=== PATIENT | male | born 1995 | race Caucasian/White ===

== ENCOUNTER 2020-01-01 15:24 | Inpatient (IN) | payer MEDICAID, OTHER ==
[~2020-01-01] VITALS: Ht 175.3 cm; Wt 68.4 kg
[~2020-01-01 15:24] MED LIST: ALBU18HF2 IH; KEP500T PO; etomidate 2mg/ml inj. ONE; rocuronium 10mg/ml inj IV ONE; sod chloride 0.9% 10ml flush syringe IV ONE
[2020-01-01] MEDS ORDERED: LORazepam 2 mg/ml vial IV ONE (15:40)
[2020-01-01] MEDS ORDERED: LORazepam 2 mg/ml vial ONE ×2 (15:55→16:02)
--- NOTE | 2020-01-01 15:57 | NUR ---
1mg ativan given IV. Patient continues to fight uncontrollably with several staff members attempting to restrain him. Dr. Teixeira notified. 2mg IV ativan ordered verbally which is over-ridden and given. Patient continues to fight. Will notify Dr. Teixeira.
[2020-01-01 15:58] LABS: BASOPHILS # (AUTO) 0.1 X10'3 (0-0.2); BASOPHILS % (AUTO) 0.4 % (0-1); EOSINOPHILS % (AUTO) 0 % (0-6); HEMATOCRIT 41.9 % (42.0-52.0); LYMPHOCYTES % (AUTO) 3.9 % (21-51); MEAN CORPUSCULAR HEMOGLOBIN 30.3 PG (27.0-31.0); MEAN CORPUSCULAR HGB CONC 33.3 g/dL (33.0-36.5); MEAN CORPUSCULAR VOLUME 90.8 FL (78-98); MEAN PLATELET VOLUME 8.8 FL (7.4-10.4); MONOCYTES # (AUTO) 1.9 X10'3 (0-0.9); MONOCYTES % (AUTO) 7.2 % (2-12); NEUTROPHILS # (AUTO) 23.5 X10'3 (1.8-7.7); NEUTROPHILS % (AUTO) 88.5 % (42-75); PLATELET COUNT 229 X10'3 (140-440); RED BLOOD COUNT 4.62 X10'6 (4.70-6.10); RED CELL DISTRIBUTION WIDTH 13.8 % (11.5-14.5)
--- NOTE | 2020-01-01 16:00 | NUR ---
PAGED FOR ULTRA SOUND
--- NOTE | 2020-01-01 16:03 | NUR ---
FAMILY PHONE NUMBER - [place] [phone]
[2020-01-01 16:06] LABS: WHITE BLOOD COUNT 26.6 X10'3 (4.5-11.0)
[2020-01-01] MEDS ORDERED: normal saline 1000ML IV soln IV ONE (16:10)
[2020-01-01] MEDS ORDERED: diphenhydrAMINE 50 mg/ml inj ONE (16:22)
[2020-01-01] MEDS ORDERED: haloperidol lactate 5mg/ml inj ONE (16:22)
[2020-01-01 16:28] LABS: PLATELET ESTIMATE NORMAL; TOTAL CELLS COUNTED 100
--- NOTE | 2020-01-01 16:38 | NUR ---
swapna and jalen over-ridden by verbal from Dr. Teixeira for continued thrashing and combative behavior. Request for possible intubation. Dr. Teixeira states if meds havent worked in 10 minutes we will intubate the patient.
--- NOTE | 2020-01-01 16:52 | NUR ---
PT MOTHER IN LAW PHONE NUMBER - [place] AGUILAR [phone]
[2020-01-01] MEDS ORDERED: propofol 1000mg/100ml bottle 100 ML IV PRN (17:07)
[2020-01-01] MEDS ORDERED: midazolam 100mg in NS 100ml 100 ML IV PRN ×2 (17:10→19:31)
[2020-01-01] MEDS: propofol 1000mg/100ml bottle 100 ML IV PRN ×2 (17:15→19:31)
[2020-01-01 17:16] LABS: ABG HCO3 19.8 mmol/L (22.0-26.0); ABG OXYGEN SATURATION 99.1 % (95-98); ABG PCO2 (T) 49.2 mmHg (35.0-45.0); ABG PH (T) 7.223 (7.350-7.450); ABG PO2 (T) 237.2 mmHg (83-108); FCOHb 0.4 % (0.5-1.5); FMetHb 0.4 % (0.3-1.12); FO2Hb 98.3 % (94-100); PEEP 5 cm H2O; RESPIRATORY RATE 14 b/min; TIDAL VOLUME 450 mL; TOTAL HEMOGLOBIN 14.7 G/dl (14.0-17.9)
[2020-01-01 17:37] LABS: ALANINE AMINOTRANSFERASE 24 U/L (12-78); ALBUMIN 4.2 G/DL (3.4-5.0); ALBUMIN/GLOBULIN RATIO 1.3 (1.1-1.5); ALKALINE PHOSPHATASE 87 IU/L (46-116); ANION GAP 12 (8-16); ASPARTATE AMINO TRANSFERASE 36 U/L (10-37); BILIRUBIN,TOTAL 0.3 MG/DL (0.1-1.0); BLOOD UREA NITROGEN 14 MG/DL (7-18); BUN/CREATININE RATIO 10.5 (5.4-32.0); CALCIUM 8.9 MG/DL (8.5-10.1); CHLORIDE 107 MMOL/L (99-107); CREATININE 1.33 MG/DL (0.60-1.10); GLUCOSE 110 MG/DL (70-104); POTASSIUM 3.6 MMOL/L (3.5-5.1); SODIUM 144 MMOL/L (135-145); TOTAL CARBON DIOXIDE 24.8 MMOL/L (24-32); TOTAL PROTEIN 7.5 G/DL (6.4-8.2); eGFR 67 ML/MIN
[2020-01-01] MEDS ORDERED: dexamethasone sod phosphate 10mg/ml inj IV STA (17:39)
[2020-01-01] MEDS ORDERED: CefTRIAXone 2gm/D5W 50ml 50 ML IV ONE (17:40)
[2020-01-01 17:48] LABS: CKMB RELATIVE INDEX 0.7 RATIO (0-2.5); CREATINE KINASE 614 U/L (39-308); ETHANOL < 0.010 GM/DL (0.0-0.010)
[2020-01-01] MEDS ORDERED: acetaminophen 650mg rectal suppository RC ONE (18:10)
[2020-01-01 18:19] LABS: CLARITY,URINE SLIGHTLY CLOUDY (Clear); COLOR,URINE STRAW (Yellow); GLUCOSE, URINE NEGATIVE (Neg); KETONES,URINE TRACE mg/dl (Neg); LEUKOCYTE ESTERASE ,URINE NEGATIVE (Neg); NITRITES, URINE NEGATIVE (Neg); OCCULT BLOOD,URINE MODERATE (Neg); PH,URINE 5.5 (4.8-8.0); PROTEIN,URINE NEGATIVE (Neg); UROBILINOGEN,URINE 0.2 E.U/dL (0.2-1.0)
[2020-01-01 18:20] LABS: UA COLLECTION TYPE CLN CATCH MIDSTREAM
[2020-01-01 18:26] LABS: GLUCOSE,CSF 93 MG/DL (40-75); TOTAL PROTEIN,CSF 50 MG/DL (15-45)
[2020-01-01 18:31] LABS: URINE AMPHETAMINE SCREEN NEGATIVE (Neg); URINE BARBITUATE SCREEN NEGATIVE (Neg); URINE BENZODIAZEPINES SCREEN POSITIVE (Neg); URINE CANNABINOID SCREEN POSITIVE (Neg); URINE COCAINE SCREEN NEGATIVE (Neg); URINE METHADONE SCREEN NEGATIVE (Neg); URINE OPIATE SCREEN NEGATIVE (Neg); URINE PHENCYCLIDINE SCREEN NEGATIVE (Neg)
[2020-01-01 18:35] LABS: APPEARANCE,CSF CLEAR; CSF SUPERNATANT COLOR COLORLESS; CSF VOLUME 8 ML; TUBE# COUNTED 1
[2020-01-01 18:38] LABS: APPEARANCE,CSF CLEAR; CSF RBC 1 /CU MM (0); CSF WBC CT 3 /CU MM (0-5)
[2020-01-01 18:39] LABS: CSF RBC 2 /CU MM (0); CSF SUPERNATANT COLOR COLORLESS; CSF VOLUME 8 ML; CSF WBC CT 2 /CU MM (0-5); TUBE# COUNTED 4
[2020-01-01 18:52] LABS: BACTERIA,URINE NONE SEEN /HPF (Neg); RBC,URINE 0-2 /HPF (0-2); SQUAMOUS EPITHELIAL CELL,UR FEW /LPF (FEW); WBC,URINE NONE SEEN /HPF (0-4)
[2020-01-01 18:53] LABS: FINE GRANULAR CAST 0-3 /LPF (NEGATIVE); URIC ACID CRYSTALS 4+ /HPF (NEGATIVE)
[2020-01-01] MEDS ORDERED: FENTANYL-0.9 % NACL/PF 100 ML IV PRN (19:31)
[2020-01-01] MEDS ORDERED: acetaminophen 650mg rectal suppository RC PRN (19:35)
[2020-01-01] MEDS ORDERED: acetaminophen 325mg tablet PO PRN (19:35)
[2020-01-01] MEDS ORDERED: ondansetron/PF 4mg/2ml inj IV PRN (19:35)
[2020-01-01] MEDS ORDERED: ipratropium/albuterol 3ml nebule NEB PRN (19:35)
[2020-01-01] MEDS ORDERED: potassium Cl 20mEq/100mL bag 100 ML IV PRN (19:35)
[2020-01-01] MEDS ORDERED: thiamine inj. 100 MG in normal saline 100ml IV soln 100 ML IV ONE (19:55)
[2020-01-01 20:10] LABS: MAGNESIUM 2.2 MG/DL (1.5-2.4); PHOSPHORUS 3.7 MG/DL (2.3-4.5)
[2020-01-01] MEDS: normal saline 1000ml 1,000 ML IV SCH (20:40)
--- NOTE | 2020-01-01 20:40 | NUR ---
Patient arrived from ER via gurney into room ICU 2042 with RT and [employer]IN[employer] DISPATCHER and tech. Transferred to ICU bed, placed on ventilator by RT. Attached to equipment monitor phototypesetting. I have received report from Ivone GUERRERO and had the opportunity to ask questions and assume patient care. Patient restless, attempting to sit up in bed, titrating sedation to reduce agitation and encourage synchrony with ventilator.
[2020-01-01 20:45] VITALS: BP 132/76
[2020-01-01 21:00] VITALS: BP 125/82
[2020-01-01 21:12] LABS: HEMOGLOBIN A1C 5.2 % (4.5-6.2)
[2020-01-01 21:30] VITALS: BP 118/69
[2020-01-01 22:00] VITALS: BP 111/61
[2020-01-01] MEDS: levetiracetam inj 500 MG in normal saline 100ml IV soln 95 ML IV SCH (22:13)
[2020-01-01] MEDS: docusate sodium 100mg/10ml UD cup PO SCH (22:15)
[2020-01-01 23:00] VITALS: BP 111/52
[2020-01-02] VITALS (23 sets, daily range): BP systolic 102–147; BP diastolic 45–94
[2020-01-02] MEDS: heparin, porcine 5000 units/ml vial SQ SCH ×3 (01:14→21:06)
[2020-01-02 03:37] LABS: BASOPHILS % (AUTO) 0.4 % (0-1); EOSINOPHILS % (AUTO) 0 % (0-6); HEMATOCRIT 37.1 % (42.0-52.0); HEMOGLOBIN 12.4 g/dl (14.0-17.9); LYMPHOCYTES # (AUTO) 0.8 X10'3 (1.1-4.8); LYMPHOCYTES % (AUTO) 6.5 % (21-51); MEAN CORPUSCULAR HEMOGLOBIN 30.2 PG (27.0-31.0); MEAN CORPUSCULAR HGB CONC 33.4 g/dL (33.0-36.5); MEAN CORPUSCULAR VOLUME 90.4 FL (78-98); MEAN PLATELET VOLUME 9.1 FL (7.4-10.4); MONOCYTES # (AUTO) 0.5 X10'3 (0-0.9); MONOCYTES % (AUTO) 3.7 % (2-12); NEUTROPHILS # (AUTO) 11.3 X10'3 (1.8-7.7); NEUTROPHILS % (AUTO) 89.4 % (42-75); PLATELET COUNT 177 X10'3 (140-440); RED CELL DISTRIBUTION WIDTH 13.7 % (11.5-14.5); WHITE BLOOD COUNT 12.6 X10'3 (4.5-11.0)
[2020-01-02 03:44] LABS: PARTIAL THROMBOPLASTIN TIME 28 SECONDS (22-32)
[2020-01-02 03:46] LABS: ABG BASE EXCESS -5.3 mmol/L (-2.0-3.0); ABG HCO3 20.1 mmol/L (22.0-26.0); ABG PCO2 (T) 38.8 mmHg (35.0-45.0); ABG PH (T) 7.333 (7.350-7.450); ABG PO2 (T) 100.5 mmHg (83-108); ALLEN'S TEST POSITIVE; FCOHb 0.3 % (0.5-1.5); FMetHb 0.3 % (0.3-1.12); FO2Hb 96.4 % (94-100); PATIENT TEMPERATURE 37.1; PEEP 5 cm H2O; RESPIRATORY RATE 16 b/min; TIDAL VOLUME 450 mL; TOTAL HEMOGLOBIN 13.1 G/dl (14.0-17.9)
[2020-01-02 03:48] LABS: ALANINE AMINOTRANSFERASE 24 U/L (12-78); ALBUMIN 3.4 G/DL (3.4-5.0); ALBUMIN/GLOBULIN RATIO 1.1 (1.1-1.5); ALKALINE PHOSPHATASE 68 IU/L (46-116); AMYLASE 37 U/L (25-115); ANION GAP 10 (8-16); ASPARTATE AMINO TRANSFERASE 57 U/L (10-37); BILIRUBIN,TOTAL 0.3 MG/DL (0.1-1.0); BLOOD UREA NITROGEN 10 MG/DL (7-18); BUN/CREATININE RATIO 9.8 (5.4-32.0); CALCIUM 8.3 MG/DL (8.5-10.1); CHLORIDE 108 MMOL/L (99-107); CREATININE 1.02 MG/DL (0.60-1.10); GLUCOSE 120 MG/DL (70-104); LIPASE 58 U/L (73-393); MAGNESIUM 2.3 MG/DL (1.5-2.4); PHOSPHORUS 4.2 MG/DL (2.3-4.5); POTASSIUM 3.9 MMOL/L (3.5-5.1); SODIUM 142 MMOL/L (135-145); TOTAL CARBON DIOXIDE 24.1 MMOL/L (24-32); TOTAL PROTEIN 6.4 G/DL (6.4-8.2); eGFR > 90 ML/MIN
--- NOTE | 2020-01-02 06:20 | NUR ---
Patient in room ICU 2042. I have received report from Irene GUERRERO and had the opportunity to ask questions and assume patient care.
--- NOTE | 2020-01-02 06:22 | NUR ---
Problems reprioritized. Patient report given, questions answered & plan of care reviewed with Estela GUERRERO.
[2020-01-02] MEDS: pantoprazole 40 MG vial IV SCH (07:13)
[2020-01-02] MEDS: docusate sodium 100mg/10ml UD cup PO SCH ×2 (07:13→21:05)
[2020-01-02] MEDS: thiamine 100mg tablet PO SCH (07:14)
[2020-01-02] MEDS: multivitamins, therapeutics tablet PO SCH (07:14)
[2020-01-02] MEDS: levetiracetam inj 500 MG in normal saline 100ml IV soln 95 ML IV SCH ×2 (07:15→21:07)
[2020-01-02] MEDS: folic acid 1mg tablet PO SCH (07:15)
[2020-01-02] MEDS: CefTRIAXone 2gm/D5W 50ml 50 ML IV SCH (07:57)
[2020-01-02] MEDS: normal saline 1000ml 1,000 ML IV SCH (07:57)
[2020-01-02] MEDS ORDERED: FENTANYL-0.9 % NACL/PF 100 ML IV PRN (09:29)
[2020-01-02] MEDS ORDERED: midazolam 100mg in NS 100ml 100 ML IV PRN (09:30)
--- NOTE | 2020-01-02 09:30 | NUR ---
Changed comfit to anchorfast with RT, advanced ETT to 23, as radiology had called and said it needed to be advanced 3cm. Follow up CXR done.
--- NOTE | 2020-01-02 11:03 | NUR ---
EEG being performed.
--- NOTE | 2020-01-02 11:06 | NUR ---
Dr. Balderas made aware in rounds that pt has decreased urine output. 5ml noted out of azar last hour. Pt currently on NS @ 75ml/hr. Cr 1.02. No other orders placed by .
--- NOTE | 2020-01-02 11:27 | NUR ---
Initial: Pt intubated for airway protection admit s/p seizure x7 at home and [address] to ER per MD. Hx seizures and reported possible 2 beers/day; receiving thiamin, folic, MVI in case etoh-induced per MD. Pt combative in ER requiring sedation and occasional bolus of propofol on vent per MD. No propofol active at this time per EMR. MAP 129 this AM at time of RD visit. No BM yet new admit receiving routine colace. OG in place; TF recs below in case prolonged intubation. Will continue to monitor. Rec: 1. IF TF; Vital at 70ml/hr goal 2. IF TF; additional water flush 200ml Q4 3. IF TF; PALB Q /; daily wts 4. routine bowel care 5. upon extubation; advance diet as medically indicated to regular; consider [employer] BSS if remains ALOC Addendum: 01/02/20 at [address] Amended: Links added.
[2020-01-02] MEDS ORDERED: NO HOME MEDS (11:41)
[2020-01-02] MEDS: dexmedetomidin/NS 400mcg/100ml 100 ML IV SCH ×2 (11:42→17:57)
--- NOTE | 2020-01-02 14:05 | NUR ---
Patient bladder scan revealed 750+mL in bladder. Repositioned coude to no avail, flushed x3 and finally it opened back up and drained 700+mL of urine.
--- NOTE | 2020-01-02 18:30 | NUR ---
Patient in room ICU 2042. I have received report from Estela GUERRERO and had the opportunity to ask questions and assume patient care. Addendum: 01/02/20 at 1955 by Irene Turner RN Amended: Links added.
[2020-01-02] MEDS: mineral oil/petrolatum ophthal oint EACHEYE SCH (21:06)
--- NOTE | 2020-01-02 23:13 | NUR ---
Urine output noted to be decreased, abdomen soft but urine drainage not improved with repositioning of azar. Flushed catheter x2, catheter put out 250mL of urine.
[2020-01-03] VITALS (14 sets, daily range): BP systolic 116–137; BP diastolic 73–93
[2020-01-03] MEDS: normal saline 1000ml 1,000 ML IV SCH (00:04)
[2020-01-03 02:39] LABS: BASOPHILS % (AUTO) 0.3 % (0-1); EOSINOPHILS % (AUTO) 0.2 % (0-6); HEMATOCRIT 37.3 % (42.0-52.0); HEMOGLOBIN 12.6 g/dl (14.0-17.9); LYMPHOCYTES # (AUTO) 2.6 X10'3 (1.1-4.8); LYMPHOCYTES % (AUTO) 22.8 % (21-51); MEAN CORPUSCULAR HEMOGLOBIN 30.7 PG (27.0-31.0); MEAN CORPUSCULAR HGB CONC 33.8 g/dL (33.0-36.5); MEAN CORPUSCULAR VOLUME 90.6 FL (78-98); MEAN PLATELET VOLUME 9.1 FL (7.4-10.4); MONOCYTES # (AUTO) 0.8 X10'3 (0-0.9); MONOCYTES % (AUTO) 6.7 % (2-12); NEUTROPHILS # (AUTO) 8.1 X10'3 (1.8-7.7); PLATELET COUNT 157 X10'3 (140-440); RED BLOOD COUNT 4.11 X10'6 (4.70-6.10); WHITE BLOOD COUNT 11.6 X10'3 (4.5-11.0)
[2020-01-03 02:54] LABS: ALANINE AMINOTRANSFERASE 33 U/L (12-78); ALBUMIN 3.2 G/DL (3.4-5.0); ALBUMIN/GLOBULIN RATIO 1.1 (1.1-1.5); ALKALINE PHOSPHATASE 56 IU/L (46-116); AMYLASE 155 U/L (25-115); ANION GAP 6 (8-16); ASPARTATE AMINO TRANSFERASE 80 U/L (10-37); BILIRUBIN,TOTAL 0.3 MG/DL (0.1-1.0); BLOOD UREA NITROGEN 12 MG/DL (7-18); BUN/CREATININE RATIO 13.8 (5.4-32.0); CALCIUM 8.4 MG/DL (8.5-10.1); CHLORIDE 111 MMOL/L (99-107); CREATININE 0.87 MG/DL (0.60-1.10); GLUCOSE 96 MG/DL (70-104); MAGNESIUM 1.8 MG/DL (1.5-2.4); POTASSIUM 3.5 MMOL/L (3.5-5.1); SODIUM 143 MMOL/L (135-145); TOTAL CARBON DIOXIDE 25.9 MMOL/L (24-32); eGFR > 90 ML/MIN
[2020-01-03] MEDS: mineral oil/petrolatum ophthal oint EACHEYE SCH ×2 (02:54→07:59)
[2020-01-03 02:55] LABS: LIPASE 1802 U/L (73-393)
[2020-01-03 03:11] LABS: ABG BASE EXCESS -1.2 mmol/L (-2.0-3.0); ABG HCO3 22.2 mmol/L (22.0-26.0); ABG OXYGEN SATURATION 98.1 % (95-98); ABG PCO2 (T) 32.8 mmHg (35.0-45.0); ABG PH (T) 7.447 (7.350-7.450); ABG PO2 (T) 111.9 mmHg (83-108); ALLEN'S TEST POSITIVE; FCOHb 0.3 % (0.5-1.5); FMetHb 0.1 % (0.3-1.12); FO2Hb 97.7 % (94-100); PATIENT TEMPERATURE 36.7; PEEP 5 cm H2O; RESPIRATORY RATE 18 b/min; TIDAL VOLUME 450 mL; TOTAL HEMOGLOBIN 13.1 G/dl (14.0-17.9)
[2020-01-03] MEDS: dexmedetomidin/NS 400mcg/100ml 100 ML IV SCH (05:24)
--- NOTE | 2020-01-03 06:15 | NUR ---
Patient awakens quickly, attempts to cough out tube, struggles against restraints. Titrating sedation for patient agitation and synchrony with the vent. Problems reprioritized. Patient report given, questions answered & plan of care reviewed with Nimisha GUERRERO.
--- NOTE | 2020-01-03 06:30 | NUR ---
Patient in room ICU 2042. I have received report from Irene GUERRERO and had the opportunity to ask questions and assume patient care.
[2020-01-03] MEDS: levetiracetam inj 500 MG in normal saline 100ml IV soln 95 ML IV SCH (07:59)
[2020-01-03] MEDS: pantoprazole 40 MG vial IV SCH (08:20)
[2020-01-03] MEDS: docusate sodium 100mg/10ml UD cup PO SCH (08:21)
[2020-01-03] MEDS: heparin, porcine 5000 units/ml vial SQ SCH (08:23)
[2020-01-03] MEDS: thiamine 100mg tablet PO SCH (08:24)
[2020-01-03] MEDS: folic acid 1mg tablet PO SCH (08:24)
[2020-01-03] MEDS: multivitamins, therapeutics tablet PO SCH (08:24)
[2020-01-03] MEDS: CefTRIAXone 2gm/D5W 50ml 50 ML IV SCH (08:29)
[2020-01-03] MEDS ORDERED: ipratropium/albuterol 3ml nebule NEB PRN (11:00)
[2020-01-03] MEDS ORDERED: racepinephrine 11.25mg/0.5ml nebule NEB PRN (11:00)
[2020-01-03] MEDS ORDERED: dexmedetomidine inj. 400 MCG in dextrose 5%-water 100 ML IV SCH (11:04)
--- NOTE | 2020-01-03 14:00 | NUR ---
Patient educated on the importance of being observed after being extubated and being on sedation. Discussed with Pat, girlfriend the importance of patient staying as well. Patient continuing to try to get out of bed and stating that he wants to leave. Discussed with Dr. Balderas who also talked with patient about the importance of medical care post extubation and sedation. Dr. Balderas states that he will provide the patient with prescriptions for anti-seizure meds and also discussed that he needs to see a neurologist as soon as possible. Patient's girlfriend, Pat, called to notify staff that she was here and would be taking him home. Patient signed AMA and left at this time.
[2020-01-03] MEDS ORDERED: ipratropium/albuterol 3ml nebule NEB SCH (15:00)
[2020-01-03] MEDS ORDERED: lactulose 20gm/30ml cup PO PRN (19:35)
[2020-01-03] MEDS ORDERED: lactobacillus rhamnosus 10,000 MMU CELLS/CAPSULE PO SCH (20:00)
== END 2020-01-03 13:40 | disposition left against medical advice (07) | DRG 208 ==
LOC: ER 15:24 → ED HOLD 19:31 → UNDOADMIN 19:49 → ICU 2S 20:00 → ED HOLD 20:00
PROVIDERS: ADMIT Internal Medicine Critical Care Medicine; ATTEND Internal Medicine Critical Care Medicine
PROC: 4A00X4Z Measurement of Central Nervous Electrical Activity, External Approach (ICD-10-PCS; principal; 2020-01-01)
PROC: 5A1945Z Respiratory Ventilation, 24-96 Consecutive Hours (ICD-10-PCS; 2020-01-01)
PROC: 0BH17EZ Insertion of Endotracheal Airway into Trachea, Via Natural or Artificial Opening (ICD-10-PCS; 2020-01-01)
DX: J96.00 Acute respiratory failure, unspecified whether with hypoxia or hypercapnia (principal); G40.909 Epilepsy, unspecified, not intractable, without status epilepticus; D72.829 Elevated white blood cell count, unspecified; F12.90 Cannabis use, unspecified, uncomplicated; N43.3 Hydrocele, unspecified; S05.10XA Contusion of eyeball and orbital tissues, unspecified eye, initial encounter; X58.XXXA Exposure to other specified factors, initial encounter; Y93.89 Activity, other specified; Y92.89 Other specified places as the place of occurrence of the external cause; Y99.8 Other external cause status; Z53.29 Procedure and treatment not carried out because of patient's decision for other reasons
CPT/HCPCS: 36415; 36600; 70450; 71045; 76870; 80053; 80305; 80320; 81001; 82150; 82550; 82553; 82803; 82945; 82948; 83036; 83605; 83690; 83735; 84100; 84145; 84157; 85018; 85025; 85610; 85730; 87015; 87040; 87070; 87081; 89051; 94002; 94003; 94760; 95816; 99291; C9113; G0378; J0696; J1100; J1200; J1630; J1644; J1953; J2060; J2704; J3010; J3411; J7030; J7060

== ENCOUNTER 2020-01-14 10:29 | Emergency (ER) | payer SELFPAY ==
[~2020-01-14] VITALS: Ht 165.1 cm; Wt 60.0 kg
[~2020-01-14 10:29] MED LIST changes: -ALBU18HF2 IH; -KEP500T PO; +NO HOME MEDS; -etomidate 2mg/ml inj. ONE; -rocuronium 10mg/ml inj IV ONE; -sod chloride 0.9% 10ml flush syringe IV ONE
[2020-01-14 10:31] VITALS: BP 145/109
[2020-01-15] MEDS ORDERED: ONDA4TAB12 PO (07:49)
== END 2020-01-14 11:23 | disposition left against medical advice (07) ==
LOC: ER 10:29
DX: R10.9 Unspecified abdominal pain (principal); R11.10 Vomiting, unspecified; Z53.21 Procedure and treatment not carried out due to patient leaving prior to being seen by health care provider

== ENCOUNTER 2020-01-15 06:07 | Emergency (ER) | payer SELFPAY ==
[~2020-01-15] VITALS: Ht 170.2 cm; Wt 140.0 kg
[2020-01-15] MEDS ORDERED: normal saline 1000ML IV soln IVB ONE ×2 (06:25)
[2020-01-15] MEDS ORDERED: diphenhydrAMINE 50 mg/ml inj IV ONE (06:25)
[2020-01-15] MEDS ORDERED: metoclopramide 5 mg/ml inj IV ONE (06:25)
[2020-01-15 07:02] LABS: BASOPHILS # (AUTO) 0.1 X10'3 (0-0.2); BASOPHILS % (AUTO) 0.4 % (0-1); EOSINOPHILS % (AUTO) 0.3 % (0-6); HEMATOCRIT 41.6 % (42.0-52.0); LYMPHOCYTES # (AUTO) 1.7 X10'3 (1.1-4.8); LYMPHOCYTES % (AUTO) 10.6 % (21-51); MEAN CORPUSCULAR HEMOGLOBIN 30.2 PG (27.0-31.0); MEAN CORPUSCULAR HGB CONC 33.7 g/dL (33.0-36.5); MEAN CORPUSCULAR VOLUME 89.6 FL (78-98); MEAN PLATELET VOLUME 8.6 FL (7.4-10.4); MONOCYTES # (AUTO) 0.9 X10'3 (0-0.9); MONOCYTES % (AUTO) 5.9 % (2-12); NEUTROPHILS # (AUTO) 12.9 X10'3 (1.8-7.7); NEUTROPHILS % (AUTO) 82.8 % (42-75); PLATELET COUNT 305 X10'3 (140-440); RED BLOOD COUNT 4.64 X10'6 (4.70-6.10); RED CELL DISTRIBUTION WIDTH 13.8 % (11.5-14.5); WHITE BLOOD COUNT 15.6 X10'3 (4.5-11.0)
[2020-01-15 07:23] LABS: CLARITY,URINE CLOUDY (Clear); COLOR,URINE YELLOW (Yellow); GLUCOSE, URINE NEGATIVE (Neg); KETONES,URINE NEGATIVE (Neg); LEUKOCYTE ESTERASE ,URINE NEGATIVE (Neg); NITRITES, URINE NEGATIVE (Neg); OCCULT BLOOD,URINE NEGATIVE (Neg); PH,URINE 8.5 (4.8-8.0); PROTEIN,URINE 30 mg/dl (Neg); UROBILINOGEN,URINE 0.2 E.U/dL (0.2-1.0)
[2020-01-15 07:25] LABS: ALANINE AMINOTRANSFERASE 52 U/L (12-78); ALBUMIN 4.2 G/DL (3.4-5.0); ALBUMIN/GLOBULIN RATIO 1.3 (1.1-1.5); ALKALINE PHOSPHATASE 95 IU/L (46-116); ANION GAP 9 (8-16); ASPARTATE AMINO TRANSFERASE 26 U/L (10-37); BILIRUBIN,TOTAL 0.3 MG/DL (0.1-1.0); BLOOD UREA NITROGEN 14 MG/DL (7-18); BUN/CREATININE RATIO 13.6 (5.4-32.0); CALCIUM 9.6 MG/DL (8.5-10.1); CHLORIDE 103 MMOL/L (99-107); CREATININE 1.03 MG/DL (0.60-1.10); GLUCOSE 111 MG/DL (70-104); LIPASE 295 U/L (73-393); POTASSIUM 3.1 MMOL/L (3.5-5.1); SODIUM 142 MMOL/L (135-145); TOTAL CARBON DIOXIDE 29.8 MMOL/L (24-32); TOTAL PROTEIN 7.5 G/DL (6.4-8.2); eGFR 89 ML/MIN
[2020-01-15 07:33] LABS: UA COLLECTION TYPE VOIDED
[2020-01-15 07:36] LABS: BACTERIA,URINE NONE SEEN /HPF (Neg); MUCUS STRANDS MANY /LPF (Neg); RBC,URINE NONE SEEN /HPF (0-2); SQUAMOUS EPITHELIAL CELL,UR FEW /LPF (FEW); WBC,URINE 0-4 /HPF (0-4)
[2020-01-15 07:37] LABS: AMORPHOUS PHOSPHATES 4+
[2020-01-15] MEDS ORDERED: ONDA4TAB12 PO (07:49)
[2020-01-15 08:01] VITALS: BP 136/86
[2020-01-16] MEDS ORDERED: PANT-47 PO (23:47)
[2020-01-16] MEDS ORDERED: PROM12.512 PO (23:47)
== END 2020-01-15 08:00 | disposition home or self-care (01) ==
LOC: ER 06:07
DX: R11.2 Nausea with vomiting, unspecified (principal); R10.13 Epigastric pain; F12.90 Cannabis use, unspecified, uncomplicated; Z86.69 Personal history of other diseases of the nervous system and sense organs
CPT/HCPCS: 36415; 80053; 81001; 83690; 85025; 96361; 96374; 96375; 99284; J1200; J2765; J7030

== ENCOUNTER 2020-01-16 21:11 | Emergency (ER) | payer OTHER ==
[~2020-01-16] VITALS: Ht 170.2 cm; Wt 65.0 kg
[~2020-01-16 21:11] MED LIST changes: +ONDA4TAB12 PO
[2020-01-16 22:06] LABS: BASOPHILS % (AUTO) 0.4 % (0-1); EOSINOPHILS % (AUTO) 0.3 % (0-6); HEMATOCRIT 40.6 % (42.0-52.0); HEMOGLOBIN 13.5 g/dl (14.0-17.9); LYMPHOCYTES # (AUTO) 1.8 X10'3 (1.1-4.8); LYMPHOCYTES % (AUTO) 12.8 % (21-51); MEAN CORPUSCULAR HEMOGLOBIN 29.9 PG (27.0-31.0); MEAN CORPUSCULAR HGB CONC 33.2 g/dL (33.0-36.5); MEAN CORPUSCULAR VOLUME 90.2 FL (78-98); MEAN PLATELET VOLUME 8.3 FL (7.4-10.4); MONOCYTES # (AUTO) 0.8 X10'3 (0-0.9); NEUTROPHILS # (AUTO) 11.3 X10'3 (1.8-7.7); NEUTROPHILS % (AUTO) 80.5 % (42-75); PLATELET COUNT 291 X10'3 (140-440); RED CELL DISTRIBUTION WIDTH 13.7 % (11.5-14.5)
[2020-01-16 22:20] LABS: ALANINE AMINOTRANSFERASE 39 U/L (12-78); ALBUMIN 4.1 G/DL (3.4-5.0); ALBUMIN/GLOBULIN RATIO 1.4 (1.1-1.5); ALKALINE PHOSPHATASE 87 IU/L (46-116); ANION GAP 10 (8-16); ASPARTATE AMINO TRANSFERASE 21 U/L (10-37); BILIRUBIN,TOTAL 0.4 MG/DL (0.1-1.0); BLOOD UREA NITROGEN 11 MG/DL (7-18); BUN/CREATININE RATIO 10.4 (5.4-32.0); CALCIUM 9.1 MG/DL (8.5-10.1); CHLORIDE 106 MMOL/L (99-107); CREATININE 1.06 MG/DL (0.60-1.10); GLUCOSE 106 MG/DL (70-104); LIPASE 208 U/L (73-393); POTASSIUM 3.2 MMOL/L (3.5-5.1); SODIUM 142 MMOL/L (135-145); TOTAL CARBON DIOXIDE 25.9 MMOL/L (24-32); eGFR 87 ML/MIN
[2020-01-16] MEDS ORDERED: normal saline 1000ML IV soln IVB ONE (22:40)
[2020-01-16] MEDS ORDERED: LORazepam 2 mg/ml vial IV ONE (22:40)
[2020-01-16] MEDS ORDERED: ondansetron/PF 4mg/2ml inj IV ONE (22:40)
[2020-01-16] MEDS ORDERED: pantoprazole 40 MG vial IV ONE (22:40)
[2020-01-16] MEDS ORDERED: PROM12.512 PO (23:47)
[2020-01-16] MEDS ORDERED: PANT-47 PO (23:47)
--- NOTE | 2020-01-16 23:52 | NUR ---
pt had some sips of water, he was able to tolerated it. no n/v at this time. pt finishing up on his iv fluids. Dr. Fay made aware.
[2020-01-17 00:07] VITALS: BP 122/84
[2020-01-18] MEDS ORDERED: SUCR1TAB34 PO (07:22)
== END 2020-01-17 00:08 | disposition home or self-care (01) ==
LOC: ER 21:11
DX: R10.13 Epigastric pain (principal); R11.10 Vomiting, unspecified; F12.90 Cannabis use, unspecified, uncomplicated; R05 Cough; Z86.69 Personal history of other diseases of the nervous system and sense organs; Z72.89 Other problems related to lifestyle; Z79.899 Other long term (current) drug therapy
CPT/HCPCS: 36415; 80053; 83690; 85025; 96361; 96374; 96375; 99284; C9113; J2060; J2405; J7030

== ENCOUNTER 2020-01-18 05:16 | Emergency (ER) | payer OTHER ==
[~2020-01-18] VITALS: Ht 170.2 cm; Wt 63.6 kg
[~2020-01-18 05:16] MED LIST changes: +PANT-47 PO; +PROM12.512 PO
[2020-01-18] MEDS ORDERED: ondansetron/PF 4mg/2ml inj IV ONE (05:35)
[2020-01-18] MEDS ORDERED: normal saline 1000ml 1,000 ML IV ONE (05:35)
[2020-01-18] MEDS ORDERED: famotidine/PF 10 mg/ml inj IV ONE (05:35)
[2020-01-18] MEDS ORDERED: mag hydrox/Alum hydrox/simeth 30ml oral suspension PO ONE (05:35)
[2020-01-18] MEDS ORDERED: LIDOcaine Viscous 15ml cup MM ONE (05:35)
[2020-01-18] MEDS ORDERED: LORazepam 2 mg/ml vial IV ONE (05:35)
[2020-01-18 05:50] LABS: CLARITY,URINE CLOUDY (Clear); COLOR,URINE YELLOW (Yellow); GLUCOSE, URINE NEGATIVE (Neg); KETONES,URINE TRACE mg/dl (Neg); LEUKOCYTE ESTERASE ,URINE NEGATIVE (Neg); NITRITES, URINE NEGATIVE (Neg); OCCULT BLOOD,URINE NEGATIVE (Neg); PROTEIN,URINE NEGATIVE (Neg); UROBILINOGEN,URINE 0.2 E.U/dL (0.2-1.0)
[2020-01-18 05:53] LABS: BASOPHILS # (AUTO) 0.1 X10'3 (0-0.2); BASOPHILS % (AUTO) 0.7 % (0-1); EOSINOPHILS # (AUTO) 0.1 X10'3 (0-0.9); EOSINOPHILS % (AUTO) 0.5 % (0-6); HEMATOCRIT 39.6 % (42.0-52.0); HEMOGLOBIN 13.4 g/dl (14.0-17.9); LYMPHOCYTES # (AUTO) 3.3 X10'3 (1.1-4.8); LYMPHOCYTES % (AUTO) 32.5 % (21-51); MEAN CORPUSCULAR HEMOGLOBIN 30.2 PG (27.0-31.0); MEAN CORPUSCULAR HGB CONC 33.9 g/dL (33.0-36.5); MEAN CORPUSCULAR VOLUME 89.2 FL (78-98); MEAN PLATELET VOLUME 8.9 FL (7.4-10.4); MONOCYTES # (AUTO) 0.9 X10'3 (0-0.9); MONOCYTES % (AUTO) 8.5 % (2-12); NEUTROPHILS # (AUTO) 5.8 X10'3 (1.8-7.7); NEUTROPHILS % (AUTO) 57.8 % (42-75); PLATELET COUNT 271 X10'3 (140-440); RED BLOOD COUNT 4.44 X10'6 (4.70-6.10); RED CELL DISTRIBUTION WIDTH 13.3 % (11.5-14.5); WHITE BLOOD COUNT 10.1 X10'3 (4.5-11.0)
[2020-01-18 05:56] LABS: UA COLLECTION TYPE CLN CATCH MIDSTREAM
[2020-01-18 06:01] LABS: AMORPHOUS PHOSPHATES 3+; BACTERIA,URINE FEW /HPF (Neg); MUCUS STRANDS FEW /LPF (Neg); RBC,URINE NONE SEEN /HPF (0-2); SQUAMOUS EPITHELIAL CELL,UR FEW /LPF (FEW); WBC,URINE 0-4 /HPF (0-4)
[2020-01-18 06:02] LABS: ALANINE AMINOTRANSFERASE 32 U/L (12-78); ALBUMIN 3.9 G/DL (3.4-5.0); ALBUMIN/GLOBULIN RATIO 1.4 (1.1-1.5); ALKALINE PHOSPHATASE 80 IU/L (46-116); ANION GAP 13 (8-16); ASPARTATE AMINO TRANSFERASE 17 U/L (10-37); BILIRUBIN,TOTAL 0.4 MG/DL (0.1-1.0); BLOOD UREA NITROGEN 7 MG/DL (7-18); BUN/CREATININE RATIO 6.1 (5.4-32.0); CALCIUM 9.2 MG/DL (8.5-10.1); CHLORIDE 108 MMOL/L (99-107); CREATININE 1.14 MG/DL (0.60-1.10); GLUCOSE 94 MG/DL (70-104); LIPASE 176 U/L (73-393); POTASSIUM 3.3 MMOL/L (3.5-5.1); SODIUM 143 MMOL/L (135-145); TOTAL CARBON DIOXIDE 21.6 MMOL/L (24-32); TOTAL PROTEIN 6.7 G/DL (6.4-8.2); eGFR 80 ML/MIN
[2020-01-18] MEDS ORDERED: ondansetron 4mg rapidly disintigrating tab PO ONE (06:35)
[2020-01-18] MEDS ORDERED: HYDROcodone/acetaminophen 5mg/325mg tablet PO ONE (06:35)
[2020-01-18] MEDS ORDERED: potassium Cl 20 mEq SR tablet PO ONE (06:35)
--- NOTE | 2020-01-18 06:50 | NUR ---
Pt states that he has vomited since being in the ED, that he filled an emesis bag and put it in the trash. There is no emesis bag in the trash at this time. The emesis bag that the pt has at bedside is empty.
[2020-01-18] MEDS ORDERED: SUCR1TAB34 PO (07:22)
[2020-01-18 07:32] VITALS: BP 132/91
== END 2020-01-18 07:37 | disposition home or self-care (01) ==
LOC: ER 05:16
DX: K29.00 Acute gastritis without bleeding (principal); F12.90 Cannabis use, unspecified, uncomplicated; Z86.69 Personal history of other diseases of the nervous system and sense organs; Z72.89 Other problems related to lifestyle; Z79.899 Other long term (current) drug therapy
CPT/HCPCS: 36415; 76700; 80053; 81001; 83690; 85025; 96361; 96374; 96375; 99284; J2060; J2405; J3490; J7030

== ENCOUNTER 2020-01-19 14:27 | Emergency (ER) | payer OTHER ==
[~2020-01-19] VITALS: Ht 170.2 cm; Wt 54.5 kg
[~2020-01-19 14:27] MED LIST changes: +SUCR1TAB34 PO
[2020-01-19 14:31] VITALS: BP 144/101
--- NOTE | 2020-01-19 16:11 | NUR ---
PT NOT IN LOBBY x3, PROVIDER NOTIFIED. NO FUTHER ACTION.
[2020-01-20] MEDS ORDERED: LORA-269 PO (09:28)
== END 2020-01-19 16:13 | disposition left against medical advice (07) ==
LOC: ER 14:27
DX: R11.2 Nausea with vomiting, unspecified (principal); Z53.21 Procedure and treatment not carried out due to patient leaving prior to being seen by health care provider

== ENCOUNTER 2020-01-19 18:15 | Emergency (ER) | payer SELFPAY ==
[~2020-01-19] VITALS: Ht 170.2 cm; Wt 65.6 kg
[2020-01-19] MEDS ORDERED: normal saline 1000ML IV soln IVB ONE (18:25)
[2020-01-19] MEDS ORDERED: ondansetron/PF 4mg/2ml inj IV ONE (18:25)
[2020-01-19] MEDS ORDERED: famotidine/PF 10 mg/ml inj IV ONE (18:45)
[2020-01-19] MEDS ORDERED: proCHLORperazine 10 MG/2 ml inj IV ONE (18:45)
[2020-01-19] MEDS ORDERED: mag hydrox/Alum hydrox/simeth 30ml oral suspension PO ONE (18:45)
[2020-01-19 18:47] LABS: BASOPHILS # (AUTO) 0.2 X10'3 (0-0.2); EOSINOPHILS # (AUTO) 0.1 X10'3 (0-0.9); EOSINOPHILS % (AUTO) 0.6 % (0-6); HEMATOCRIT 40.8 % (42.0-52.0); HEMOGLOBIN 13.9 g/dl (14.0-17.9); LYMPHOCYTES # (AUTO) 1.9 X10'3 (1.1-4.8); LYMPHOCYTES % (AUTO) 17.7 % (21-51); MEAN CORPUSCULAR HEMOGLOBIN 30.3 PG (27.0-31.0); MEAN CORPUSCULAR VOLUME 89.2 FL (78-98); MEAN PLATELET VOLUME 8.8 FL (7.4-10.4); MONOCYTES # (AUTO) 0.7 X10'3 (0-0.9); MONOCYTES % (AUTO) 6.3 % (2-12); NEUTROPHILS # (AUTO) 7.7 X10'3 (1.8-7.7); NEUTROPHILS % (AUTO) 73.4 % (42-75); PLATELET COUNT 284 X10'3 (140-440); RED BLOOD COUNT 4.57 X10'6 (4.70-6.10); RED CELL DISTRIBUTION WIDTH 13.3 % (11.5-14.5); WHITE BLOOD COUNT 10.5 X10'3 (4.5-11.0)
[2020-01-19 19:01] LABS: ALANINE AMINOTRANSFERASE 29 U/L (12-78); ALBUMIN/GLOBULIN RATIO 1.3 (1.1-1.5); ALKALINE PHOSPHATASE 79 IU/L (46-116); ANION GAP 9 (8-16); ASPARTATE AMINO TRANSFERASE 18 U/L (10-37); BILIRUBIN,TOTAL 0.4 MG/DL (0.1-1.0); BLOOD UREA NITROGEN 7 MG/DL (7-18); BUN/CREATININE RATIO 6.5 (5.4-32.0); CALCIUM 9.4 MG/DL (8.5-10.1); CHLORIDE 106 MMOL/L (99-107); CREATININE 1.08 MG/DL (0.60-1.10); GLUCOSE 89 MG/DL (70-104); LIPASE 164 U/L (73-393); POTASSIUM 3.3 MMOL/L (3.5-5.1); SODIUM 143 MMOL/L (135-145); TOTAL CARBON DIOXIDE 28.3 MMOL/L (24-32); eGFR 85 ML/MIN
[2020-01-19] MEDS ORDERED: metoclopramide 5 mg/ml inj IV ONE (19:25)
[2020-01-19 19:46] VITALS: BP 151/95
[2020-01-20] MEDS ORDERED: LORA-269 PO (09:28)
== END 2020-01-19 19:47 | disposition home or self-care (01) ==
LOC: ER 18:15
DX: R10.13 Epigastric pain (principal); R11.10 Vomiting, unspecified; F12.90 Cannabis use, unspecified, uncomplicated; Z86.69 Personal history of other diseases of the nervous system and sense organs; Z79.899 Other long term (current) drug therapy
CPT/HCPCS: 36415; 80053; 83690; 85025; 96374; 96375; 99284; J0780; J2405; J2765; J3490; J7030

== ENCOUNTER 2020-01-20 07:54 | Emergency (ER) | payer SELFPAY ==
[~2020-01-20] VITALS: Ht 170.2 cm; Wt 64.8 kg
[2020-01-20] MEDS ORDERED: LORazepam 2 mg/ml vial IM ONE (08:40)
[2020-01-20] MEDS ORDERED: haloperidol lactate 5mg/ml inj IM ONE (08:40)
[2020-01-20 09:00] VITALS: BP 152/97
--- NOTE | 2020-01-20 09:05 | NUR ---
PT REPORTS N/V/ ABD PAIN FOR A WEEK.
[2020-01-20] MEDS ORDERED: LORA-269 PO (09:28)
== END 2020-01-20 09:40 | disposition home or self-care (01) ==
LOC: ER 07:54
DX: F12.929 Cannabis use, unspecified with intoxication, unspecified (principal); R11.2 Nausea with vomiting, unspecified; F12.90 Cannabis use, unspecified, uncomplicated; R10.819 Abdominal tenderness, unspecified site; Z86.69 Personal history of other diseases of the nervous system and sense organs; Z72.89 Other problems related to lifestyle; Z79.899 Other long term (current) drug therapy
CPT/HCPCS: 96372; 99284; J1630; J2060

== ENCOUNTER 2020-05-06 12:54 | Emergency (ER) | payer MEDICAID ==
[~2020-05-06] VITALS: Ht 170.2 cm; Wt 49.9 kg
[~2020-05-06 12:54] MED LIST changes: +LORA-269 PO
[2020-05-06 13:31] VITALS: BP 123/74
--- NOTE | 2020-05-06 15:26 | NUR ---
PT CALLED TO FAST TRACK X3, NIL. PROVIDER NOTIFIED, NO FURTHER ACTION ORDERED
== END 2020-05-06 15:29 | disposition left against medical advice (07) ==
LOC: ER 12:55
DX: S61.012A Laceration without foreign body of left thumb without damage to nail, initial encounter (principal); Z53.21 Procedure and treatment not carried out due to patient leaving prior to being seen by health care provider; W22.8XXA Striking against or struck by other objects, initial encounter; Y93.89 Activity, other specified; Y92.89 Other specified places as the place of occurrence of the external cause; Y99.8 Other external cause status

== ENCOUNTER 2020-09-05 18:10 | Emergency (ER) | payer MEDICAID ==
[~2020-09-05] VITALS: Ht 162.6 cm; Wt 63.4 kg
[2020-09-05] MEDS ORDERED: LORazepam 2 mg/ml vial IV ONE (20:15)
[2020-09-05] MEDS ORDERED: ondansetron/PF 4mg/2ml inj IV ONE (20:15)
[2020-09-05] MEDS ORDERED: normal saline 1000ML IV soln IVB ONE (20:15)
[2020-09-05 20:30] VITALS: BP 139/85
[2020-09-05 21:13] LABS: ALANINE AMINOTRANSFERASE 25 U/L (12-78); ALBUMIN 4.2 G/DL (3.4-5.0); ALBUMIN/GLOBULIN RATIO 1.2 (1.1-1.5); ALKALINE PHOSPHATASE 77 IU/L (46-116); ANION GAP 10 (8-16); ASPARTATE AMINO TRANSFERASE 26 U/L (10-37); BILIRUBIN,TOTAL 0.6 MG/DL (0.1-1.0); BLOOD UREA NITROGEN 18 MG/DL (7-18); BUN/CREATININE RATIO 12.9 (5.4-32.0); CALCIUM 9.6 MG/DL (8.5-10.1); CHLORIDE 104 MMOL/L (99-107); CREATININE 1.39 MG/DL (0.60-1.10); GLUCOSE 94 MG/DL (70-104); SODIUM 140 MMOL/L (135-145); TOTAL CARBON DIOXIDE 25.9 MMOL/L (24-32); TOTAL PROTEIN 7.6 G/DL (6.4-8.2); eGFR 63 ML/MIN
[2020-09-05 21:30] LABS: BASOPHILS % (AUTO) 0.2 % (0-1); EOSINOPHILS % (AUTO) 0.4 % (0-6); HEMATOCRIT 38.4 % (42.0-52.0); HEMOGLOBIN 13.1 g/dl (14.0-17.9); LYMPHOCYTES # (AUTO) 2.1 X10'3 (1.1-4.8); LYMPHOCYTES % (AUTO) 22.7 % (21-51); MEAN CORPUSCULAR HEMOGLOBIN 30.4 PG (27.0-31.0); MEAN CORPUSCULAR HGB CONC 34.2 g/dL (33.0-36.5); MEAN CORPUSCULAR VOLUME 88.8 FL (78-98); MEAN PLATELET VOLUME 8.8 FL (7.4-10.4); MONOCYTES % (AUTO) 10.5 % (2-12); NEUTROPHILS # (AUTO) 6.2 X10'3 (1.8-7.7); NEUTROPHILS % (AUTO) 66.2 % (42-75); PLATELET COUNT 236 X10'3 (140-440); RED BLOOD COUNT 4.32 X10'6 (4.70-6.10); RED CELL DISTRIBUTION WIDTH 13.2 % (11.5-14.5); WHITE BLOOD COUNT 9.4 X10'3 (4.5-11.0)
== END 2020-09-05 21:37 | disposition home or self-care (01) ==
LOC: ER 18:10
DX: F41.9 Anxiety disorder, unspecified (principal); R11.2 Nausea with vomiting, unspecified; F12.90 Cannabis use, unspecified, uncomplicated; Z86.69 Personal history of other diseases of the nervous system and sense organs; Z72.89 Other problems related to lifestyle; Z79.899 Other long term (current) drug therapy
CPT/HCPCS: 36415; 80053; 85025; 96361; 96374; 96375; 99284; J2060; J2405; J7030

== ENCOUNTER 2021-11-04 19:51 | Emergency (ER) | payer MEDICAID ==
[~2021-11-04] VITALS: Ht 172.7 cm; Wt 65.9 kg
--- NOTE | 2021-11-04 21:15 | NUR ---
Abd pain times one day on intensity of 8/10
[2021-11-04] MEDS ORDERED: normal saline 1000ML IV soln IVB ONE (21:25)
[2021-11-04] MEDS ORDERED: ondansetron/PF 4mg/2ml inj IV ONE (21:25)
--- NOTE | 2021-11-04 21:30 | NUR ---
labs collected and sent
--- NOTE | 2021-11-04 21:50 | NUR ---
pt medicated pr mar
[2021-11-04 21:54] LABS: BASOPHILS % (AUTO) 0.4 % (0-1); EOSINOPHILS # (AUTO) 0.1 X10'3 (0-0.9); EOSINOPHILS % (AUTO) 0.4 % (0-6); HEMATOCRIT 45.5 % (42.0-52.0); HEMOGLOBIN 15.4 g/dl (14.0-17.9); LYMPHOCYTES # (AUTO) 0.4 X10'3 (1.1-4.8); LYMPHOCYTES % (AUTO) 3.7 % (21-51); MEAN CORPUSCULAR HEMOGLOBIN 29.4 PG (27.0-31.0); MEAN CORPUSCULAR HGB CONC 33.9 g/dL (33.0-36.5); MEAN CORPUSCULAR VOLUME 86.7 FL (78-98); MEAN PLATELET VOLUME 9.3 FL (7.4-10.4); MONOCYTES # (AUTO) 0.6 X10'3 (0-0.9); MONOCYTES % (AUTO) 4.9 % (2-12); NEUTROPHILS % (AUTO) 90.6 % (42-75); PLATELET COUNT 223 X10'3 (140-440); RED BLOOD COUNT 5.24 X10'6 (4.70-6.10); WHITE BLOOD COUNT 12.1 X10'3 (4.5-11.0)
[2021-11-04 21:57] VITALS: BP 120/84
[2021-11-04 22:00] LABS: ALANINE AMINOTRANSFERASE 18 U/L (12-78); ALBUMIN 4.3 G/DL (3.4-5.0); ALBUMIN/GLOBULIN RATIO 1.2 (1.1-1.5); ALKALINE PHOSPHATASE 99 IU/L (46-116); ANION GAP 13 (8-16); ASPARTATE AMINO TRANSFERASE 19 U/L (10-37); BILIRUBIN,TOTAL 0.6 MG/DL (0.1-1.0); BLOOD UREA NITROGEN 16 MG/DL (7-18); CALCIUM 9.5 MG/DL (8.5-10.1); CHLORIDE 102 MMOL/L (99-107); CREATININE 0.84 MG/DL (0.60-1.10); GLUCOSE 113 MG/DL (70-104); SODIUM 141 MMOL/L (135-145); TOTAL CARBON DIOXIDE 25.9 MMOL/L (24-32); eGFR > 90 ML/MIN
[2021-11-04 22:02] LABS: POTASSIUM 4.3 MMOL/L (3.5-5.1)
--- NOTE | 2021-11-04 22:04 | NUR ---
Pt left AMA half way through his IV fluids without d/c instructions
[2021-11-04] MEDS ORDERED: ONDA4TAB12 PO (22:16)
[2021-11-04 22:25] LABS: TOTAL CELLS COUNTED 100
[2021-11-04 22:26] LABS: PLATELET ESTIMATE NORMAL
== END 2021-11-04 22:30 | disposition home or self-care (01) ==
LOC: ER 19:52
DX: K52.9 Noninfective gastroenteritis and colitis, unspecified (principal); F12.10 Cannabis abuse, uncomplicated; Z79.899 Other long term (current) drug therapy; Z20.822 Contact with and (suspected) exposure to COVID-19
CPT/HCPCS: 36415; 80053; 85007; 85025; 87635; 96374; 99283; C9803; J2405; J7030; 96361

== ENCOUNTER 2024-11-04 07:42 | Emergency (ER) | payer MEDICAID ==
[~2024-11-04 07:42] MED LIST changes: +ONDA-243 PO; -ONDA4TAB12 PO
== END 2024-11-04 09:10 | disposition left against medical advice (07) ==
LOC: ER 07:43
DX: R10.9 Unspecified abdominal pain (principal); R11.0 Nausea; Z53.21 Procedure and treatment not carried out due to patient leaving prior to being seen by health care provider

== ENCOUNTER 2025-04-08 16:19 | Emergency (ER) | payer MEDICAID, MEDICARE ==
[~2025-04-08] VITALS: Ht 167.6 cm; Wt 68.0 kg
[2025-04-08 16:22] VITALS: BP 127/89; PULSE 83; RESP 16; TEMP 98.4; O2SAT 99
[2025-04-08] MEDS ORDERED: IBUP-1986 PO (16:38)
[2025-04-08] MEDS ORDERED: AMOX-117 PO (16:38)
--- NOTE | 2025-04-08 16:38 | Physician Documentation ---
HPI ~ General Chief Complaint: Tooth Problem Stated Complaint: TOOTH PAIN Time Seen by MD: 16:30 Primary Medical Doctor: [facility] History of Present Illness HPI Comment This is a 29-year-old male who presents with several weeks of progressively worsening bilateral upper rear dental pain, patient reports that he is having trouble getting in with a dentist. Patient reports no fevers. Patient reports no other acute symptoms or concerns. Medication Reconciliation Allergies: Coded Allergies: No Known Allergies (Unverified , 11/04/21) Scheduled Amox Tr/Potassium Clavulanate (Augmentin 875-125 Tablet), 1 TAB PO Q12H Ibuprofen (Ibuprofen), 1 TAB PO Q8H ONDANSETRON ODT 4mg tablet (Ondansetron Odt), 1 TABLET PO Q6H Pantoprazole Sodium (PROTONIX tablet), 1 TAB PO DAILY Promethazine Hcl (Phenergan), 1 TAB PO Q6H Sucralfate (Carafate), 1 TAB PO Q6H Scheduled PRN Lorazepam (Ativan), 1 TAB PO Q8H PRN for nausea/vomiting ONDANSETRON ODT 4mg tablet (Ondansetron Odt), 1 TABLET PO Q6H PRN for nausea/vomiting Miscellaneous Medications Home Med List (No Home Medications), (Reported) Past Medical History Past Medical History: Seizures, *GI/HEPATOBILIARY*, Gastritis Past Surgical History: no surgical history Alcohol Use: Heavy Drug Use: marijuana Lives In: Home Review of Systems ROS As stated above in the HPI, otherwise all systems are reviewed and negative. Physical Exam Vital Signs: Temperature: 98.4, Source: Temporal, Heart Rate: 83, Respiratory Rate: 16, BP: 127/89, Pulse Oximetry: 99, Weight: 68.000 Oxygen Flow Rate: 0 Physical Exam VITALS: Reviewed and as above. GENERAL: Alert, nontoxic appearing, no apparent distress. HEENT: Bilateral upper rear molars severely decayed, no facial swelling, no submandibular swelling, no elevation of the tongue, no drooling. No cervical lymphadenopathy RESPIRATORY: No increased work of breathing, no respiratory distress, speaking in full clear sentences Progress Results/Orders Results/Orders Vital Signs 04/08/25 16:22 Temp 98.4 Pulse 83 Resp 16 B/P (MAP) 127/89 Pulse Ox 99 O2 Flow Rate 0 Medical Decision Making Findings This well appearing 29-year-old male presented with dental pain to the bilateral upper molars. Based on history and physical exam I have low clinical suspicion for peritonsillar abscess, uvulitis, deep tissue space infection of the head/neck, or impending airway compromise. There was no submandibular swelling or elevation of the tongue, the uvula was midline, patient is able to swallow fluids and secretion without difficulty, there is no increased work of breathing or noisy breathing. Based on presentation I am concerned for odontogenic infection and antibiotic treatment with Augmentin is indicated. Pain control with non-narcotic medications is appropriate at this time. Patient instructed to follow up with dentist as soon as possible. Remainder of physical exam was benign and patient is otherwise well-appearing, patient appropriate for discharge. Home care instructions, follow up instructions, and return to care precautions with the patient who verbalized understanding. Differential Dx:Considerations: Include: Alveolar fracture, Alveolar osteitis, ANUG, Facial Cellulitis, Periapical abscess, Peridontal abscess Departure Time of Disposition: 16:37 Disposition: HOME / SELF CARE / HOMELESS Impression: Primary Impression: Toothache Condition: Improved Discharge Instructions: Dental Pain Additional Instructions: Please take the antibiotics as prescribed. Please use the ibuprofen as prescribed, you may add Tylenol as needed for pain as directed by [id number] packaging. Please take the ibuprofen with food to avoid stomach upset. Follow up with a dentist as soon as possible for definitive management of your tooth problems. Please also follow up with your primary care provider in the next few days. Please return to the emergency department for any new or worsening concerning symptoms. Referrals: NO PRIMARY CARE PROVIDER (PCP) Prescriptions Amox Tr/Potassium Clavulanate (Augmentin 875-125 Tablet) 1 Each Tablet 1 TAB PO Q12H for 7 Days, #14 TAB Prov: HORACIO BLACK 04/08/25 Ibuprofen (Ibuprofen) 800 Mg Tablet 1 TAB PO Q8H for pain for 10 Days, #30 TAB 0 Refills Prov: HORACIO BLACK 04/08/25 Education Educated: Patient Educated regarding: diagnosis, treatment, prognosis, need for follow up Signature Scribe Signature: No scribe Attestation: The note accurately reflects work and decisions made by me.NELSON Flanagan 04/08/25 19:35 HORACIO BLACK [facility] Apr 08, 2025 16:38
== END 2025-04-08 16:48 | disposition home or self-care (01) ==
LOC: ER 16:20
DX: K08.89 Other specified disorders of teeth and supporting structures (principal); K02.9 Dental caries, unspecified; F12.90 Cannabis use, unspecified, uncomplicated
CPT/HCPCS: 99283

== ENCOUNTER 2025-07-26 09:58 | Emergency (ER) | payer MEDICARE, MEDICAID ==
[~2025-07-26] VITALS: Ht 167.6 cm; Wt 70.4 kg
[~2025-07-26 09:58] MED LIST changes: +IBUP-1986 PO
--- NOTE | 2025-07-26 10:32 | Physician Documentation ---
History of Present Illness Chief Complaint: Abdominal Pain w/vomiting Stated Complaint: NAUSEA/VOMITING Primary Medical Doctor: [facility] HPI Patient is a very pleasant 30-year-old male that presents to the emergency department for 3 days of nausea and vomiting. Patient reports that he has a esophageal hernia as he describes it and believes that he vomited a little bit of blood. Patient vomited here in the emergency department there was no blood in the vomit it was clear. Patient denies chest pain chest pressure shortness of breath or any other symptoms at this time. Patient endorses bloody streaked vomitings. Patient underwent endoscopy in about December or January this year which revealed esophageal hernia. Patient has associated fever and chills. Patient describes the pain as sharp with intensity of 10/10 present in the umbilical region with radiation CAD epigastrium. Patient drinks 2-3 beers a day and vapes nicotine. 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 Medication Reconciliation Allergies: Coded Allergies: No Known Allergies (Unverified , 07/26/25) Scheduled Ibuprofen (Ibuprofen), 1 TAB PO Q8H ONDANSETRON ODT 4mg tablet (Ondansetron Odt), 1 TABLET PO Q6H Pantoprazole Sodium (PROTONIX tablet), 1 TAB PO DAILY Promethazine Hcl (Phenergan), 1 TAB PO Q6H Sucralfate (Carafate), 1 TAB PO Q6H Scheduled PRN Lorazepam (Ativan), 1 TAB PO Q8H PRN for nausea/vomiting ONDANSETRON ODT 4mg tablet (Ondansetron Odt), 1 TABLET PO Q6H PRN for nausea/vomiting Miscellaneous Medications Home Med List (No Home Medications), (Reported) Past Medical History Past Medical History: Seizures, *GI/HEPATOBILIARY*, Gastritis Past Surgical History: no surgical history Alcohol Use: Heavy Drug Use: marijuana Lives In: Home Review of Systems ROS As stated above in the HPI, otherwise all systems are reviewed and negative. Physical Exam Vital Signs: Temperature: 97.9, Source: Oral, Heart Rate: 71, Respiratory Rate: 18, BP: 130/110, Pulse Oximetry: 98, Weight: 70.400 Oxygen Flow Rate: 0 Physical Exam General: Alert, awake, oriented, not in acute distress HEENT: PERRLA, no icterus, pallor, lymphadenopathy, carotid bruit Respiratory system: Bilateral vesicular breath sounds heard, no adventitious breath sounds CVS: S1-S2 heard, no murmurs/rubs/gallop GI: Soft, nontender, no organomegaly, no guarding/rigidity, bowel sounds present Neuro: No focal neurological deficits present Mental status exam: alert and consciousness, orientation, memory, speech - Cranial nerve test: Cranial nerves 2-12 intact - Motor system: Nutrition, Tone 3+, Power 5/5, no involuntary movements - Sensory system: Intact - Reflex testing: Biceps, triceps and knee reflexes 2+ - Cerebellar: Normal Extremities: No edema cyanosis clubbing/deformities Skin: Warm and dry Progress Results/Orders Results/Orders Vital Signs 07/26/25 10:14 Temp 97.9 Pulse 71 Resp 18 B/P (MAP) 130/110 Pulse Ox 98 O2 Flow Rate 0 Medical Decision Making Additional information obtaine: N/A Findings A 30-year-old male with multiple prior admissions for cannabis induced hyperemesis syndrome presented to the ED with vomitings nausea fever and chills. Patient is being evaluated for possible gastritis versus cholelithiasis or appendicitis. Differential Dx:Considerations: Cholangitis, Cholelithasis, Constipation, Diverticular disease, Esophagitis, Gastritis/PUD, Pancreatitis Departure Disposition: 01 HOME / SELF CARE / HOMELESS Impression: Primary Impression: Cyclical vomiting Referrals: NO PRIMARY CARE PROVIDER (PCP) Signature Scribe Signature: None Attestation: Document created by the resident, reviewed by the ED physician ANIL FULLERP Jul 26, 2025 10:32 IJEOMA LYONS, RES Jul 26, 2025 11:56
[2025-07-26 10:56] LABS: MEAN PLATELET VOLUME 8.5 FL (7.4-10.4); RED CELL DISTRIBUTION WIDTH 13.8 % (11.5-14.5)
[2025-07-26 11:14] LABS: CREATININE 0.92 MG/DL (0.60-1.10); TOTAL CARBON DIOXIDE 30.2 MMOL/L (24-32); eCRCL 107 ML/MIN; eGFR > 90 ML/MIN
[2025-07-26] MEDS: ondansetron/PF 4mg/2ml inj IV ONE (11:53)
[2025-07-26 12:43] LABS: INFLUENZA TYPE A ANTIGEN RAPID NEGATIVE (Negative); INFLUENZA TYPE B ANTIGEN RAPID NEGATIVE (Negative)
[2025-07-26 13:09] LABS: LEUKOCYTE ESTERASE ,URINE NEGATIVE (Neg); NITRITES, URINE NEGATIVE (Neg); OCCULT BLOOD,URINE NEGATIVE (Neg)
[2025-07-26 13:11] LABS: UA COLLECTION TYPE CLN CATCH MIDSTREAM
[2025-07-26 13:16] LABS: MUCUS STRANDS MODERATE /LPF (Neg); SQUAMOUS EPITHELIAL CELL,UR FEW /LPF (FEW)
[2025-07-26 13:25] VITALS: BP 136/78; PULSE 98; RESP 17; O2SAT 97
[2025-07-26] MEDS: normal saline 1000ml 1,000 ML IV SCH (13:25)
[2025-07-26] MEDS: metoclopramide 5 mg/ml inj IV ONE (13:25)
[2025-07-26 13:27] LABS: URINE AMPHETAMINE SCREEN NEGATIVE (Neg); URINE BARBITUATE SCREEN NEGATIVE (Neg); URINE BENZODIAZEPINES SCREEN NEGATIVE (Neg); URINE CANNABINOID SCREEN POSITIVE (Neg); URINE COCAINE SCREEN NEGATIVE (Neg); URINE METHADONE SCREEN NEGATIVE (Neg); URINE OPIATE SCREEN NEGATIVE (Neg); URINE PHENCYCLIDINE SCREEN NEGATIVE (Neg)
[2025-07-26] MEDS: normal saline 500ml IV soln 1,000 ML IV ONE (14:14)
[2025-07-26 14:47] VITALS: TEMP 97.9
== END 2025-07-26 14:52 | disposition home or self-care (01) ==
LOC: ER 09:58
DX: R11.2 Nausea with vomiting, unspecified (principal); I25.10 Atherosclerotic heart disease of native coronary artery without angina pectoris; F12.90 Cannabis use, unspecified, uncomplicated; F10.90 Alcohol use, unspecified, uncomplicated; Z79.899 Other long term (current) drug therapy; Z20.822 Contact with and (suspected) exposure to COVID-19; Y90.9 Presence of alcohol in blood, level not specified
CPT/HCPCS: 36415; 80053; 80305; 81001; 83690; 85025; 87088; 87804; 87811; 96361; 96374; 96375; 99284; J0780; J2405; J2470; J2765; J7030; J7040